=== PATIENT | male | born 1985 | race Caucasian/White ===

== ENCOUNTER 2018-03-02 12:11 | Outpatient (CLI) | payer OTHER ==
--- NOTE | 2018-03-02 16:00 | MRI Report ---
Reason: PAIN IN LEFT FOOT Procedure Date: 03/02/2018 Accession Number: [id number] / [id number] Procedure: MRI - Foot LT W/O CPT Code: FULL RESULT: EXAM: LEFT MIDFOOT MRI WITHOUT CONTRAST EXAM DATE: 03/02/2018 01:05 PM. CLINICAL HISTORY: Left midfoot pain. COMPARISON: None. TECHNIQUE: Multiplanar, multisequence T1-weighted and fluid-sensitive sequences of the midfoot without contrast. Other: None. FINDINGS: Bones: There is a nondisplaced fracture of the cuboid involving the distal articular surface. There is moderate marrow edema. The finding corresponds with the more lateral of the 2 midfoot surface markers. There are no other foci of marrow edema or fracture. Articular Cartilage: Unremarkable. Ligaments: The visualized intertarsal, intermetatarsal, and tarsometatarsal ligaments are intact. This includes the Lisfranc ligament. The visualized collateral ligaments are intact. Tendons: The flexor and extensor tendons are unremarkable. Musculature: No edema or fatty atrophy. Other: No effusions. The visualized portion of the tarsal tunnel is unremarkable. No intermetatarsal bursitis. The subcutaneous tissues are unremarkable. IMPRESSION: 1. Nondisplaced fracture of the cuboid involving the distal articular surface. Moderate marrow edema. 2. No other significant abnormality. [facility] MUSCULOSKELETAL RADIOLOGY SECTION
== END 2018-03-02 12:12 | disposition home or self-care (01) ==
LOC: DI 12:11
PROVIDERS: ATTEND Family Medicine
DX: S92.215A Nondisplaced fracture of cuboid bone of left foot, initial encounter for closed fracture (principal)